=== PATIENT | male | born 1950 ===

== ENCOUNTER 2021-10-31 20:29 | Emergency (ER) | payer OTHER ==
[2021-10-31 22:59] LABS: EOSINOPHIL 10.3 % (0-7); HCT 41.5 % (42.0-52.0); HGB 13.8 g/dl (13.2-18.0); LYMPHOCYTE 19.9 % (15-48); MCH 33.5 pg (25.0-31.0); MCHC 33.3 g/dL (32.0-36.0); MCV 100.7 fL (78.0-100.0); MONOCYTE 7.9 % (0-12); MPV 9.7 fL (6.0-9.5); NEUTROPHIL 60.5 % (41-80); NRBC 0; PLT 234 K/uL (150-400); RBC 4.12 M/uL (4.70-6.00); RDW 14.8 % (11.5-14.0)
[2021-10-31 23:20] LABS: ALBUMIN 3.3 g/dL (3.4-5.0); BILIRUBIN - TOTAL 0.5 mg/dL (0.2-1.0); BUN/CREAT RATIO (CALC) 10.7 RATIO; CREATININE 1.78 mg/dL (0.67-1.17); GLOBULIN (CALCULATION) 3.6 g/dL; POTASSIUM 4.6 mmol/L (3.5-5.1); TOTAL PROTEIN 6.9 g/dL (6.4-8.2)
[2021-10-31 23:34] LABS: CORONAVIRUS 2019 SARS-COV-2 NEGATIVE (NEGATIVE); INFLUENZA A NAA NEGATIVE (NEGATIVE)
== END 2021-11-01 02:05 | disposition home or self-care (01) ==
LOC: FER 20:29
PROVIDERS: Internal Medicine
DX: G43.909 Migraine, unspecified, not intractable, without status migrainosus (principal); H53.2 Diplopia; I10 Essential (primary) hypertension; E11.9 Type 2 diabetes mellitus without complications; F17.210 Nicotine dependence, cigarettes, uncomplicated; Z79.4 Long term (current) use of insulin; Z79.84 Long term (current) use of oral hypoglycemic drugs; Z79.899 Other long term (current) drug therapy; Z20.822 Contact with and (suspected) exposure to COVID-19
CPT/HCPCS: 36415; 70450; 70480; 80053; 85025; 96372; J2765; J3030; J3475; J7030; U0002